=== PATIENT | male | born 1945 | race Caucasian/White ===

== ENCOUNTER 2020-11-03 01:29 | Day surgery (SDCO) | payer OTHER ==
[~2020-11-03] VITALS: Ht 177.8 cm; Wt 66.3 kg
[~2020-11-03 01:29] MED LIST: ADVAIR HFA 230-28 GM INH; ANTIVERT25 MG PO; ASPIRIN CHEWABL81 MG PO; AZITHROMYCIN250 MG PO; CEFDINIR300 MG PO; DEXAMETHASONE 2M2 MG PO; DOXYCYCLINE MO100 MG PO; DUONEB 2.5-0.5M1 AMP INH; LIPITOR40 MG PO; MEDROL 4MG DOSEP4 MG PO; PULMICORT0.5 MG/2 M NEB; VENTOLIN (2.5 MG/3 M NEB
[2020-11-03 02:00] LABS: BASOPHIL 0.1 % (0-2); EOSINOPHIL 1.2 % (0-7); HCT 36.5 % (42.0-52.0); HGB 11.2 g/dl (13.2-18.0); LYMPHOCYTE 11.4 % (15-48); MCH 30.1 pg (25.0-31.0); MCHC 30.7 g/dL (32.0-36.0); MCV 98.1 fL (78.0-100.0); MONOCYTE 10.7 % (0-12); MPV 11.2 fL (6.0-9.5); NEUTROPHIL 76.4 % (41-80); NRBC 0; PLT 140 K/uL (150-400); RBC 3.72 M/uL (4.70-6.00); RDW 12.6 % (11.5-14.0); WBC 8.1 K/uL (4.0-10.5)
[2020-11-03 02:11] LABS: ALBUMIN 3.3 g/dL (3.4-5.0); BILIRUBIN - TOTAL 0.5 mg/dL (0.2-1.0); BUN/CREAT RATIO (CALC) 10.1 RATIO; CREATININE 0.89 mg/dL (0.67-1.17); GLOBULIN (CALCULATION) 4.1 g/dL; POTASSIUM 4.2 mmol/L (3.5-5.1); TOTAL PROTEIN 7.4 g/dL (6.4-8.2)
[2020-11-03 02:17] LABS: PRO-BNP 291 pg/mL (<125)
[2020-11-03 03:58] LABS: BILIRUBIN NEGATIVE (NEGATIVE); BLOOD NEGATIVE Ery/uL (NEGATIVE); CLARITY CLEAR (CLEAR); COLOR YELLOW (YELLOW); GLUCOSE (U) NORMAL (NORMAL); LEUKOCYTES NEGATIVE Leu/uL (NEGATIVE); NITRITE NEGATIVE (NEGATIVE); PROTEIN NEGATIVE (NEGATIVE); UROBILINOGEN 0.2 mg/dL (0.2-1.0); pH 6.5 (5.0-9.0)
[2020-11-03] MEDS ORDERED: MEDROL 4MG DOSEP4 MG PO (04:11)
[2020-11-03] MEDS ORDERED: ZPAK PO (04:11)
[2020-11-03] MEDS ORDERED: BAYER CHEWABLE81 MG PO (05:59)
[2020-11-03] MEDS ORDERED: MOTION SICKNESS25 MG PO (06:00)
--- NOTE | 2020-11-03 09:50 | NUR ---
PT. IS OBS. PLEASE CONSIDER FULL ADMIT OR D/C. THANKS,
[2020-11-04 04:00] LABS: BASOPHIL 0.1 % (0-2); EOSINOPHIL 0 % (0-7); HCT 32.4 % (42.0-52.0); HGB 10.1 g/dl (13.2-18.0); LYMPHOCYTE 3.7 % (15-48); MCHC 31.2 g/dL (32.0-36.0); MCV 96.1 fL (78.0-100.0); MONOCYTE 3.3 % (0-12); MPV 11.1 fL (6.0-9.5); NEUTROPHIL 92.5 % (41-80); NRBC 0; PLT 143 K/uL (150-400); RBC 3.37 M/uL (4.70-6.00); RDW 12.6 % (11.5-14.0); WBC 6.7 K/uL (4.0-10.5)
[2020-11-04 04:21] LABS: ALBUMIN 2.8 g/dL (3.4-5.0); BILIRUBIN - TOTAL 0.4 mg/dL (0.2-1.0); BUN/CREAT RATIO (CALC) 26.8 RATIO; CREATININE 0.82 mg/dL (0.67-1.17); GLOBULIN (CALCULATION) 3.9 g/dL; POTASSIUM 4.5 mmol/L (3.5-5.1); TOTAL PROTEIN 6.7 g/dL (6.4-8.2)
[2020-11-05 04:28] LABS: HCT 31.7 % (42.0-52.0); HGB 10.1 g/dl (13.2-18.0); MCH 30.6 pg (25.0-31.0); MCHC 31.9 g/dL (32.0-36.0); MCV 96.1 fL (78.0-100.0); RBC 3.3 M/uL (4.70-6.00); RDW 12.9 % (11.5-14.0); WBC 10.2 K/uL (4.0-10.5)
[2020-11-05 04:49] LABS: BUN/CREAT RATIO (CALC) 34.5 RATIO; CREATININE 0.84 mg/dL (0.67-1.17); POTASSIUM 4.3 mmol/L (3.5-5.1)
--- NOTE | 2020-11-05 14:42 | NUR ---
11/05/20 Mr. Henson lives alone. His granddaughter and son visit the home. They bring in meals and groceries. Mr. Henson reports to be able to manage his ALDs and IADLS. He has a walking stick, cane, and 02. A rw was previously ordered. Mr. Henson reports to have sent the rw back because there is not enough room in the mobile home. - [facility] has followed in the past. Mr. Henson has agreed to another HHR. A referral was made to Maryellen Ortiz with [facility].
--- NOTE | 2020-11-06 08:41 | NUR ---
AWARE OF 106 HR AND 23 RR
[2020-11-06] MEDS ORDERED: PREDNISONE 20MG20 MG PO (12:21)
[2020-11-06] MEDS ORDERED: AZITHROMYCIN250 MG PO (12:21)
[2020-11-06] MEDS ORDERED: SINGULAIR10 MG PO (12:21)
[2020-11-06] MEDS ORDERED: FLONASE ALLER15.8 ML (12:21)
[2020-11-06] MEDS ORDERED: TRELEGY ELLIPT1 EAC1 INH (12:24)
--- NOTE | 2020-11-06 12:57 | NUR ---
11/06/20 Caretenders, Maryellen Ortiz, was informed of anticipated discharge for 11/07/20. - Mr. Hobbs was provided with a smoking cessation booklett.
[2020-11-07] MEDS ORDERED: WELLBUTRIN SR150 MG PO (08:34)
[2020-11-07] MEDS ORDERED: NEILMED SINUS1 EACH (12:59)
[2020-11-07] MEDS ORDERED: CLARITIN10 MG PO (13:00)
== END 2020-11-07 13:05 | disposition home health service (06) ==
LOC: FER 01:29 → FTCU 04:27 → FMS 04:27 → FTCU 11-05 07:26 → FMS 11-06 19:16
PROVIDERS: Emergency Medicine; Hospitalist; Nurse Practitioner; ADMIT Internal Medicine
DX: J44.1 Chronic obstructive pulmonary disease with (acute) exacerbation (principal); F17.210 Nicotine dependence, cigarettes, uncomplicated; J96.11 Chronic respiratory failure with hypoxia; J96.12 Chronic respiratory failure with hypercapnia; M19.90 Unspecified osteoarthritis, unspecified site; I25.10 Atherosclerotic heart disease of native coronary artery without angina pectoris; I65.22 Occlusion and stenosis of left carotid artery; I73.9 Peripheral vascular disease, unspecified; Z79.52 Long term (current) use of systemic steroids; Z79.82 Long term (current) use of aspirin; Z88.8 Allergy status to other drugs, medicaments and biological substances; Z95.820 Peripheral vascular angioplasty status with implants and grafts; Z99.81 Dependence on supplemental oxygen; Z20.822 Contact with and (suspected) exposure to COVID-19
CPT/HCPCS: 36415; 36600; 71045; 80048; 80053; 81003; 82803; 83605; 83880; 84484; 85025; 87040; 93005; 94640; 94664; 97110; 97116; 97162; 97166; 97530-GP; 97535; G0378; J0696; J2920; J2930; J7040; J7512; J8540; U0002

== ENCOUNTER 2022-03-28 20:20 | Emergency (ER) | payer MEDICARE, OTHER ==
[~2022-03-28] VITALS: Ht 177.8 cm; Wt 77.1 kg
[~2022-03-28 20:20] MED LIST changes: +BAYER CHEWABLE81 MG PO; +CLARITIN10 MG PO; +FLONASE ALLER15.8 ML; +MOTION SICKNESS25 MG PO; +NEILMED SINUS1 EACH; +PREDNISONE 20MG20 MG PO; +SINGULAIR10 MG PO; +TRELEGY ELLIPT1 EAC1 INH; +WELLBUTRIN SR150 MG PO; +ZPAK PO
[2022-03-28 20:55] LABS: BASOPHIL 0.2 % (0-2); EOSINOPHIL 0 % (0-7); HCT 33.3 % (42.0-52.0); HGB 10.2 g/dl (13.2-18.0); MCH 28.3 pg (25.0-31.0); MCHC 30.6 g/dL (32.0-36.0); MCV 92.2 fL (78.0-100.0); MONOCYTE 13.3 % (0-12); MPV 11.8 fL (6.0-9.5); NRBC 0; PLT 83 K/uL (150-400); RBC 3.61 M/uL (4.70-6.00); RDW 14.1 % (11.5-14.0); WBC 5.6 K/uL (4.0-10.5)
[2022-03-28 21:09] LABS: ALBUMIN 3.3 g/dL (3.4-5.0); BILIRUBIN - TOTAL 0.3 mg/dL (0.2-1.0); BUN/CREAT RATIO (CALC) 23.1 RATIO; CREATININE 0.91 mg/dL (0.67-1.17); GLOBULIN (CALCULATION) 3.4 g/dL; POTASSIUM 4.5 mmol/L (3.5-5.1); TOTAL PROTEIN 6.7 g/dL (6.4-8.2)
[2022-03-28 21:10] LABS: LACTIC ACID 0.7 mmol/L (0.4-1.9)
[2022-03-28 21:38] LABS: INFLUENZA A NAA NEGATIVE (NEGATIVE)
[2022-03-28 21:40] LABS: CORONAVIRUS 2019 SARS-COV-2 POSITIVE (NEGATIVE)
[2022-03-28 22:14] LABS: INR 1.07 (0.9-1.2); PROTHROMBIN TIME 13.6 SECONDS (11.9-13.9)
[2022-03-28 22:15] LABS: PTT 38.7 SECONDS (24.9-34.6)
[2022-03-28 22:16] LABS: D-DIMER 0.78 ug/mLFEU (0.00-0.41)
[2022-03-29 02:02] LABS: BILIRUBIN NEGATIVE (NEGATIVE); BLOOD NEGATIVE Ery/uL (NEGATIVE); CLARITY CLEAR (CLEAR); COLOR YELLOW (YELLOW); GLUCOSE (U) NORMAL (NORMAL); LEUKOCYTES NEGATIVE Leu/uL (NEGATIVE); NITRITE NEGATIVE (NEGATIVE); PROTEIN NEGATIVE (NEGATIVE); UROBILINOGEN 0.2 mg/dL (0.2-1.0); pH 5.5 (5.0-9.0)
[2022-03-29 04:58] LABS: BASOPHIL 0 % (0-2); EOSINOPHIL 0 % (0-7); HCT 31.8 % (42.0-52.0); HGB 9.8 g/dl (13.2-18.0); LYMPHOCYTE 2.4 % (15-48); MCH 28.3 pg (25.0-31.0); MCHC 30.8 g/dL (32.0-36.0); MCV 91.9 fL (78.0-100.0); MONOCYTE 6.2 % (0-12); MPV 10.7 fL (6.0-9.5); NRBC 0; PLT 77 K/uL (150-400); RBC 3.46 M/uL (4.70-6.00); RDW 14.4 % (11.5-14.0); WBC 9.1 K/uL (4.0-10.5)
[2022-03-29 05:18] LABS: ALBUMIN 2.7 g/dL (3.4-5.0); BILIRUBIN - TOTAL 0.8 mg/dL (0.2-1.0); BUN/CREAT RATIO (CALC) 24.1 RATIO; CREATININE 0.83 mg/dL (0.67-1.17); GLOBULIN (CALCULATION) 2.9 g/dL; TOTAL PROTEIN 5.6 g/dL (6.4-8.2)
== END 2022-03-29 05:29 | disposition other institution (70) ==
LOC: FER 20:20
PROVIDERS: Internal Medicine; Nurse Practitioner
DX: U07.1 COVID-19 (principal); J12.82 Pneumonia due to coronavirus disease 2019; J44.0 Chronic obstructive pulmonary disease with (acute) lower respiratory infection; G93.41 Metabolic encephalopathy; J96.01 Acute respiratory failure with hypoxia; F17.200 Nicotine dependence, unspecified, uncomplicated
CPT/HCPCS: 36415; 36600; 70450; 71045; 71275; 80053; 81003; 82150; 82803; 83605; 83880; 84145; 84484; 85025; 85379; 85610; 85730; 87040; 93005; 94640; 94664; 96365; 96366; 96375; C9399; J0248; J1100; J2250; J2370; J2543; J2704; J2930; J7030; J7050; Q9967; U0002